=== PATIENT | female | born 1980 | race Caucasian/White ===

== ENCOUNTER 2018-08-31 21:13 | Inpatient (IN) | payer OTHER ==
[2018-08-31] MEDS ORDERED: NACL 0.9% 3 ML SYG IV (22:00)
[2018-08-31] MEDS ORDERED: BISACODYL (EC) 5 MG TAB PO (22:00)
[2018-08-31] MEDS ORDERED: DOCUSATE SODIUM 100 MG CAP PO (22:00)
[2018-08-31] MEDS ORDERED: ONDANSETRON 4 MG INJ IV (22:00)
[2018-08-31] MEDS ORDERED: ACETAMINOPHEN 325 MG TAB PO (22:00)
[2018-08-31 22:40] LABS: ADD MAN DIFF? NO; BASOPHILS % 0.5 % (0.0-2.0); EOSINOPHILS # 0.1 10^3/ul (0.0-0.5); EOSINOPHILS % 0.9 % (0.0-7.0); HEMATOCRIT 38.1 % (37.0-47.0); HEMOGLOBIN 13.2 g/dl (12.0-16.0); LYMPHOCYTES # 2.3 10^3/ul (0.8-2.9); LYMPHOCYTES % 27.9 % (15.0-51.0); MEAN CORPUSCULAR HEMOGLOBIN 27.6 pg (29.0-33.0); MEAN CORPUSCULAR HGB CONC 34.6 g/dl (32.0-37.0); MEAN CORPUSCULAR VOLUME 79.5 fl (82.0-101.0); MEAN PLATELET VOLUME 10.3 fl (7.4-10.4); MONOCYTE # 0.7 10^3/ul (0.3-0.9); MONOCYTES % 8.9 % (0.0-11.0); NEUTROPHILS % 61.2 % (39.0-77.0); PLATELET COUNT 297 10^3/UL (140-415); RED BLOOD COUNT 4.79 10^6/ul (4.20-5.40); RED CELL DISTRIBUTION WIDTH 13.7 % (11.5-14.5)
[2018-08-31 22:40] LABS: WHITE BLOOD COUNT 8.1 10^3/ul (4.8-10.8)
[2018-08-31 23:00] LABS: ANION GAP 8 (5-13); BLOOD UREA NITROGEN 10 mg/dl (7-20); CALCIUM 8.6 mg/dl (8.4-10.2); CARBON DIOXIDE 22 mmol/L (21-31); CHLORIDE 109 mmol/L (97-110); CREATININE 0.52 mg/dl (0.44-1.00); Estimated GFR > 60 mL/min (>60); GLUCOSE 105 mg/dl (70-220); POTASSIUM 4.2 mmol/L (3.5-5.1); SODIUM 139 mmol/L (135-144)
[2018-09-01 03:03] LABS: ANION GAP 10 (5-13); BLOOD UREA NITROGEN 10 mg/dl (7-20); CARBON DIOXIDE 21 mmol/L (21-31); CHLORIDE 108 mmol/L (97-110); CREATININE 0.49 mg/dl (0.44-1.00); Estimated GFR > 60 mL/min (>60); GLUCOSE 98 mg/dl (70-220); POTASSIUM 4.3 mmol/L (3.5-5.1); SODIUM 139 mmol/L (135-144)
[2018-09-01 03:07] LABS: OSMOLALITY 285 mOsm/kg (280-295)
[2018-09-01 06:14] LABS: ANION GAP 6 (5-13); BLOOD UREA NITROGEN 10 mg/dl (7-20); CALCIUM 8.6 mg/dl (8.4-10.2); CARBON DIOXIDE 24 mmol/L (21-31); CHLORIDE 111 mmol/L (97-110); CREATININE 0.53 mg/dl (0.44-1.00); Estimated GFR > 60 mL/min (>60); GLUCOSE 95 mg/dl (70-220); POTASSIUM 4.6 mmol/L (3.5-5.1); SODIUM 141 mmol/L (135-144)
[2018-09-01 06:19] LABS: CHOL/HDL RATIO 4.6 RATIO; CHOLESTEROL 171 mg/dl (100-200); HDL CHOLESTEROL 37 mg/dl (34-82); LDL CHOLESTEROL,CALCULATED 105 mg/dl; TRIGLYCERIDES 143 mg/dl (0-149)
[2018-09-01 06:19] LABS: MAGNESIUM 2.9 mg/dl (1.7-2.5)
[2018-09-01 07:48] LABS: ADD UMIC YES; UR ASCORBIC ACID NEGATIVE (NEGATIVE); UR BACTERIA FEW /HPF (NONE SEEN); UR BILIRUBIN (Dip) NEGATIVE (NEGATIVE); UR BLOOD (Dip) 1+ mg/dL (NEGATIVE); UR CLARITY CLEAR (CLEAR); UR COLOR YELLOW (YELLOW); UR GLUCOSE (Dip) NEGATIVE (NEGATIVE); UR KETONES (Dip) NEGATIVE (NEGATIVE); UR LEUKOCYTE ESTERASE (Dip) NEGATIVE Leu/ul (NEGATIVE); UR NITRITE (Dip) NEGATIVE (NEGATIVE); UR RBC 0 /HPF (0-5); UR SPECIFIC GRAVITY (Dip) 1.009 (1.003-1.030); UR TOTAL PROTEIN (Dip) NEGATIVE (NEGATIVE); UR UROBILINOGEN (Dip) NEGATIVE (NEGATIVE); UR WBC 1 /HPF (0-5)
[2018-09-01 07:59] LABS: SODIUM,URINE RANDOM < 13 mmol/L (30-90)
[2018-09-01 08:30] LABS: OSMOLALITY,URINE 280 mOsm/kg (250-1200)
== END 2018-09-01 15:51 | disposition home or self-care (01) | DRG 641 ==
LOC: 6WM 21:13
DX: E87.6 Hypokalemia (principal); E87.1 Hypo-osmolality and hyponatremia; K52.9 Noninfective gastroenteritis and colitis, unspecified; I10 Essential (primary) hypertension; F31.9 Bipolar disorder, unspecified
CPT/HCPCS: 80048; 80061; 81001; 82306; 83735; 83930; 83935; 84300; 84443; 85025; 87081

== ENCOUNTER 2018-09-05 00:52 | Emergency (ER) | payer OTHER ==
[2018-09-05 03:12] LABS: URINE BLOOD (Dip) POC Trace-lysed (NEGATIVE); URINE GLUCOSE (Dip) POC Negative (NEGATIVE); URINE KETONES (Dip) POC Negative (NEGATIVE); URINE LEUKOCYTE EST (Dip) POC Negative (NEGATIVE); URINE NITRITE (Dip) POC Negative (NEGATIVE); URINE TOTAL PROTEIN POC Negative (NEGATIVE)
[2018-09-05] MEDS: LIDOCAINE/MYLANTA 40 ML BTL PO (03:22)
[2018-09-05] MEDS: ONDANSETRON (ODT) 4 MG TAB ODT (03:22)
[2018-09-05] MEDS: ACETAMINOPHEN 500 MG TAB PO (03:23)
[2018-09-05] MEDS: FAMOTIDINE 20 MG TAB PO (03:24)
[2018-09-05] MEDS: NICARDipine HCL 30 MG CAPSULE PO (04:09)
== END 2018-09-05 04:12 | disposition home or self-care (01) ==
LOC: FTE 00:52
DX: R19.7 Diarrhea, unspecified (principal); I10 Essential (primary) hypertension; R11.10 Vomiting, unspecified
CPT/HCPCS: 81003; 81025; 99283

== ENCOUNTER 2018-09-06 07:55 | Emergency (ER) | payer OTHER ==
[2018-09-06 09:19] LABS: ADD MAN DIFF? NO
[2018-09-06 09:22] LABS: BASOPHIL # 0.1 10^3/ul (0.0-0.1); EOSINOPHILS # 0.1 10^3/ul (0.0-0.5); EOSINOPHILS % 0.7 % (0.0-7.0); HEMOGLOBIN 14.4 g/dl (12.0-16.0); LYMPHOCYTES # 2.2 10^3/ul (0.8-2.9); LYMPHOCYTES % 30.5 % (15.0-51.0); MEAN CORPUSCULAR HEMOGLOBIN 27.4 pg (29.0-33.0); MEAN CORPUSCULAR HGB CONC 33.5 g/dl (32.0-37.0); MEAN CORPUSCULAR VOLUME 81.7 fl (82.0-101.0); MEAN PLATELET VOLUME 9.3 fl (7.4-10.4); MONOCYTE # 0.4 10^3/ul (0.3-0.9); MONOCYTES % 5.4 % (0.0-11.0); NEUTROPHIL # 4.4 10^3/ul (1.6-7.5); PLATELET COUNT 364 10^3/UL (140-415); RED BLOOD COUNT 5.26 10^6/ul (4.20-5.40); RED CELL DISTRIBUTION WIDTH 13.4 % (11.5-14.5)
[2018-09-06 09:44] LABS: ALANINE AMINOTRANSFERASE 34 IU/L (13-69); ALBUMIN 4.6 g/dl (3.3-4.9); ALBUMIN/GLOBULIN RATIO 1.35; ALKALINE PHOSPHATASE 120 IU/L (42-121); ANION GAP 9 (5-13); ASPARTATE AMINO TRANSFERASE 30 IU/L (15-46); BILIRUBIN,INDIRECT 1.5 mg/dl (0-1.1); BILIRUBIN,TOTAL 1.5 mg/dl (0.2-1.3); BLOOD UREA NITROGEN 9 mg/dl (7-20); CALCIUM 9.5 mg/dl (8.4-10.2); CARBON DIOXIDE 30 mmol/L (21-31); CHLORIDE 102 mmol/L (97-110); CREATININE 0.63 mg/dl (0.44-1.00); Estimated GFR > 60 mL/min (>60); GLUCOSE 93 mg/dl (70-220); LIPASE 602 U/L (23-300); POTASSIUM 3.9 mmol/L (3.5-5.1); SODIUM 141 mmol/L (135-144)
[2018-09-06 09:54] LABS: ADD UMIC YES; UR ASCORBIC ACID NEGATIVE (NEGATIVE); UR BILIRUBIN (Dip) NEGATIVE (NEGATIVE); UR BLOOD (Dip) 1+ mg/dL (NEGATIVE); UR CLARITY CLEAR (CLEAR); UR COLOR COLORLESS (YELLOW); UR GLUCOSE (Dip) NEGATIVE (NEGATIVE); UR KETONES (Dip) NEGATIVE (NEGATIVE); UR LEUKOCYTE ESTERASE (Dip) NEGATIVE Leu/ul (NEGATIVE); UR NITRITE (Dip) NEGATIVE (NEGATIVE); UR RBC 0 /HPF (0-5); UR SPECIFIC GRAVITY (Dip) 1.001 (1.003-1.030); UR TOTAL PROTEIN (Dip) NEGATIVE (NEGATIVE); UR UROBILINOGEN (Dip) NEGATIVE (NEGATIVE); UR WBC 0 /HPF (0-5)
[2018-09-06] MEDS: LIDOCAINE/MYLANTA 40 ML BTL PO (09:55)
[2018-09-06] MEDS: morphine 2 MG INJ IV (09:55)
[2018-09-06] MEDS: DICYCLOMINE 10 MG CAP PO (09:56)
[2018-09-06] MEDS: SOD CHLORIDE 0.9% 1,000 ML IV (09:56)
[2018-09-06] MEDS: ONDANSETRON 4 MG INJ IV (09:56)
== END 2018-09-06 12:11 | disposition left against medical advice (07) ==
LOC: FTE 07:55
DX: K85.90 Acute pancreatitis without necrosis or infection, unspecified (principal); N13.30 Unspecified hydronephrosis
CPT/HCPCS: 36415; 76705; 80053; 81001; 81025; 83690; 85025; 96361; 96374; 96375; 99285-25

== ENCOUNTER 2018-09-06 23:45 | Emergency (ER) | payer OTHER ==
[2018-09-07 03:57] LABS: ADD UMIC YES; UR ASCORBIC ACID NEGATIVE (NEGATIVE); UR BILIRUBIN (Dip) NEGATIVE (NEGATIVE); UR BLOOD (Dip) 2+ mg/dL (NEGATIVE); UR CLARITY CLEAR (CLEAR); UR COLOR COLORLESS (YELLOW); UR GLUCOSE (Dip) NEGATIVE (NEGATIVE); UR KETONES (Dip) NEGATIVE (NEGATIVE); UR LEUKOCYTE ESTERASE (Dip) NEGATIVE Leu/ul (NEGATIVE); UR NITRITE (Dip) NEGATIVE (NEGATIVE); UR RBC 0 /HPF (0-5); UR SPECIFIC GRAVITY (Dip) 1.002 (1.003-1.030); UR SQUAMOUS EPITHELIAL CELL FEW /HPF (FEW); UR TOTAL PROTEIN (Dip) NEGATIVE (NEGATIVE); UR UROBILINOGEN (Dip) NEGATIVE (NEGATIVE); UR WBC 0 /HPF (0-5)
[2018-09-07] MEDS: ONDANSETRON (ODT) 4 MG TAB ODT (04:30)
[2018-09-07] MEDS: FAMOTIDINE 20 MG TAB PO (04:31)
[2018-09-07] MEDS: ACETAMINOPHEN 500 MG TAB PO (04:31)
== END 2018-09-07 04:37 | disposition home or self-care (01) ==
LOC: FTE 23:45
DX: B34.9 Viral infection, unspecified (principal); I10 Essential (primary) hypertension
CPT/HCPCS: 81001; 84703; 87086; 99283

== ENCOUNTER 2018-09-07 07:36 | Emergency (ER) | payer OTHER ==
[2018-09-07 08:34] LABS: ADD MAN DIFF? NO
[2018-09-07 08:47] LABS: BASOPHIL # 0.1 10^3/ul (0.0-0.1); BASOPHILS % 0.9 % (0.0-2.0); EOSINOPHILS # 0.1 10^3/ul (0.0-0.5); EOSINOPHILS % 0.7 % (0.0-7.0); HEMOGLOBIN 13.9 g/dl (12.0-16.0); LYMPHOCYTES # 2.8 10^3/ul (0.8-2.9); LYMPHOCYTES % 33.8 % (15.0-51.0); MEAN CORPUSCULAR HEMOGLOBIN 27.4 pg (29.0-33.0); MEAN CORPUSCULAR HGB CONC 33.9 g/dl (32.0-37.0); MEAN CORPUSCULAR VOLUME 80.9 fl (82.0-101.0); MEAN PLATELET VOLUME 9.8 fl (7.4-10.4); MONOCYTE # 0.5 10^3/ul (0.3-0.9); MONOCYTES % 5.9 % (0.0-11.0); NEUTROPHIL # 4.8 10^3/ul (1.6-7.5); NEUTROPHILS % 58.5 % (39.0-77.0); PLATELET COUNT 362 10^3/UL (140-415); RED BLOOD COUNT 5.07 10^6/ul (4.20-5.40); RED CELL DISTRIBUTION WIDTH 13.7 % (11.5-14.5)
[2018-09-07 08:47] LABS: WHITE BLOOD COUNT 8.2 10^3/ul (4.8-10.8)
[2018-09-07] MEDS: DICYCLOMINE 10 MG CAP PO (09:00)
[2018-09-07 09:06] LABS: ALANINE AMINOTRANSFERASE 27 IU/L (13-69); ALBUMIN 4.3 g/dl (3.3-4.9); ALKALINE PHOSPHATASE 91 IU/L (42-121); ANION GAP 9 (5-13); ASPARTATE AMINO TRANSFERASE 28 IU/L (15-46); BILIRUBIN,INDIRECT 1.6 mg/dl (0-1.1); BILIRUBIN,TOTAL 1.6 mg/dl (0.2-1.3); BLOOD UREA NITROGEN 7 mg/dl (7-20); CALCIUM 8.8 mg/dl (8.4-10.2); CARBON DIOXIDE 28 mmol/L (21-31); CHLORIDE 102 mmol/L (97-110); CREATININE 0.57 mg/dl (0.44-1.00); Estimated GFR > 60 mL/min (>60); GLUCOSE 99 mg/dl (70-220); LIPASE 73 U/L (23-300); POTASSIUM 3.6 mmol/L (3.5-5.1); SODIUM 139 mmol/L (135-144); TOTAL PROTEIN 7.6 g/dl (6.1-8.1)
== END 2018-09-07 10:14 | disposition home or self-care (01) ==
LOC: E/R 07:36
DX: F22 Delusional disorders (principal); R10.84 Generalized abdominal pain; R40.2142 Coma scale, eyes open, spontaneous, at arrival to emergency department; R40.2252 Coma scale, best verbal response, oriented, at arrival to emergency department; R40.2362 Coma scale, best motor response, obeys commands, at arrival to emergency department; I10 Essential (primary) hypertension
CPT/HCPCS: 74176; 80053; 81025; 83690; 85025; 99284-25

== ENCOUNTER 2018-09-09 00:30 | Emergency (ER) | payer OTHER ==
[2018-09-09 02:15] LABS: ADD UMIC YES; UR ASCORBIC ACID NEGATIVE (NEGATIVE); UR BILIRUBIN (Dip) NEGATIVE (NEGATIVE); UR BLOOD (Dip) 1+ mg/dL (NEGATIVE); UR CLARITY CLEAR (CLEAR); UR COLOR COLORLESS (YELLOW); UR GLUCOSE (Dip) NEGATIVE (NEGATIVE); UR KETONES (Dip) NEGATIVE (NEGATIVE); UR LEUKOCYTE ESTERASE (Dip) NEGATIVE Leu/ul (NEGATIVE); UR NITRITE (Dip) NEGATIVE (NEGATIVE); UR RBC 0 /HPF (0-5); UR SPECIFIC GRAVITY (Dip) 1.002 (1.003-1.030); UR TOTAL PROTEIN (Dip) NEGATIVE (NEGATIVE); UR UROBILINOGEN (Dip) NEGATIVE (NEGATIVE); UR WBC 0 /HPF (0-5)
== END 2018-09-09 03:29 | disposition home or self-care (01) ==
LOC: FTE 03:29
DX: R10.30 Lower abdominal pain, unspecified (principal); R30.0 Dysuria; F41.9 Anxiety disorder, unspecified; I10 Essential (primary) hypertension; R11.0 Nausea
CPT/HCPCS: 81001; 81025; 87086; 99283

== ENCOUNTER 2018-09-10 18:20 | Emergency (ER) | payer OTHER ==
[2018-09-10] MEDS: LIDOCAINE/MYLANTA 40 ML BTL PO (19:23)
[2018-09-10] MEDS: BELLADONNA/PHENOBARBITAL TAB PO (19:23)
== END 2018-09-10 19:43 | disposition home or self-care (01) ==
LOC: E/R 18:20
DX: R42 Dizziness and giddiness (principal); I10 Essential (primary) hypertension; F31.12 Bipolar disorder, current episode manic without psychotic features, moderate; R19.7 Diarrhea, unspecified; R10.84 Generalized abdominal pain; R11.2 Nausea with vomiting, unspecified
CPT/HCPCS: 99283; Z7610

== ENCOUNTER 2018-09-11 19:27 | Emergency (ER) | payer OTHER ==
[2018-09-11 21:48] LABS: URINE BLOOD (Dip) POC Trace-lysed (NEGATIVE); URINE GLUCOSE (Dip) POC Negative (NEGATIVE); URINE KETONES (Dip) POC Negative (NEGATIVE); URINE LEUKOCYTE EST (Dip) POC Negative (NEGATIVE); URINE NITRITE (Dip) POC Negative (NEGATIVE); URINE TOTAL PROTEIN POC Negative (NEGATIVE)
== END 2018-09-11 22:41 | disposition home or self-care (01) ==
LOC: FTE 19:27
DX: F41.9 Anxiety disorder, unspecified (principal); I10 Essential (primary) hypertension; R19.7 Diarrhea, unspecified; R42 Dizziness and giddiness; R11.0 Nausea
CPT/HCPCS: 81003; 81025; 99282

== ENCOUNTER 2018-09-14 11:30 | Emergency (ER) | payer OTHER ==
[2018-09-14] MEDS: ONDANSETRON (ODT) 4 MG TAB ODT (12:05)
[2018-09-14 12:30] LABS: URINE BLOOD (Dip) POC 2+ (NEGATIVE); URINE GLUCOSE (Dip) POC Negative (NEGATIVE); URINE KETONES (Dip) POC Negative (NEGATIVE); URINE LEUKOCYTE EST (Dip) POC Negative (NEGATIVE); URINE NITRITE (Dip) POC Negative (NEGATIVE); URINE TOTAL PROTEIN POC 1+ (NEGATIVE)
[2018-09-14 12:33] LABS: URINE BLOOD (Dip) POC 2+ (NEGATIVE); URINE GLUCOSE (Dip) POC Negative (NEGATIVE); URINE KETONES (Dip) POC Negative (NEGATIVE); URINE LEUKOCYTE EST (Dip) POC Negative (NEGATIVE); URINE NITRITE (Dip) POC Negative (NEGATIVE); URINE TOTAL PROTEIN POC 1+ (NEGATIVE)
== END 2018-09-14 12:45 | disposition home or self-care (01) ==
LOC: FTE 12:45
DX: R11.0 Nausea (principal)
CPT/HCPCS: 81003; 81025; 96374; 96375; 96376; 99285-25

== ENCOUNTER 2018-09-15 07:43 | Emergency (ER) | payer OTHER | END 2018-09-15 08:39 | disposition home or self-care (01) | LOC: FTE 07:43 → E/R 08:39 | DX: Z00.00 Encounter for general adult medical examination without abnormal findings (principal); I10 Essential (primary) hypertension | CPT/HCPCS: 99282; Z7502 ==

== ENCOUNTER 2018-09-16 11:37 | Emergency (ER) | payer OTHER ==
[2018-09-16 12:42] LABS: ADD MAN DIFF? NO
[2018-09-16 12:48] LABS: WHITE BLOOD COUNT 7.2 10^3/ul (4.8-10.8)
[2018-09-16 12:48] LABS: BASOPHIL # 0.1 10^3/ul (0.0-0.1); BASOPHILS % 0.7 % (0.0-2.0); EOSINOPHILS # 0.1 10^3/ul (0.0-0.5); EOSINOPHILS % 1.4 % (0.0-7.0); HEMATOCRIT 40.7 % (37.0-47.0); HEMOGLOBIN 13.8 g/dl (12.0-16.0); LYMPHOCYTES # 2.4 10^3/ul (0.8-2.9); MEAN CORPUSCULAR HEMOGLOBIN 27.6 pg (29.0-33.0); MEAN CORPUSCULAR HGB CONC 33.9 g/dl (32.0-37.0); MEAN CORPUSCULAR VOLUME 81.4 fl (82.0-101.0); MEAN PLATELET VOLUME 9.6 fl (7.4-10.4); MONOCYTE # 0.4 10^3/ul (0.3-0.9); NEUTROPHIL # 4.2 10^3/ul (1.6-7.5); NEUTROPHILS % 58.6 % (39.0-77.0); PLATELET COUNT 313 10^3/UL (140-415); RED CELL DISTRIBUTION WIDTH 13.5 % (11.5-14.5)
[2018-09-16 13:02] LABS: ALANINE AMINOTRANSFERASE 28 IU/L (13-69); ALBUMIN 4.5 g/dl (3.3-4.9); ALBUMIN/GLOBULIN RATIO 1.36; ALKALINE PHOSPHATASE 80 IU/L (42-121); AMYLASE 71 U/L (11-123); ANION GAP 11 (5-13); ASPARTATE AMINO TRANSFERASE 26 IU/L (15-46); BILIRUBIN,INDIRECT 2.1 mg/dl (0-1.1); BILIRUBIN,TOTAL 2.1 mg/dl (0.2-1.3); BLOOD UREA NITROGEN 7 mg/dl (7-20); CALCIUM 9.7 mg/dl (8.4-10.2); CARBON DIOXIDE 25 mmol/L (21-31); CHLORIDE 107 mmol/L (97-110); CREATINE KINASE 79 IU/L (23-200); CREATININE 0.55 mg/dl (0.44-1.00); Estimated GFR > 60 mL/min (>60); GLUCOSE 99 mg/dl (70-220); LIPASE 64 U/L (23-300); POTASSIUM 3.6 mmol/L (3.5-5.1); SODIUM 143 mmol/L (135-144); TOTAL PROTEIN 7.8 g/dl (6.1-8.1)
[2018-09-16 13:05] LABS: INR 0.89; PROTIME 12.2 Sec (11.9-14.9)
[2018-09-16 13:06] LABS: PARTIAL THROMBOPLASTIN TIME 27.7 Sec (23.0-35.0)
[2018-09-16 13:14] LABS: CK INDEX 0.6; CK-MB 0.47 ng/ml (0.0-2.4); TROPONIN-I < 0.012 ng/ml (0.000-0.120)
[2018-09-16 13:15] LABS: ACETAMINOPHEN < 10.0 ug/ml (10.0-30.0); ETHANOL < 10.0 mg/dl (0-0); SALICYLATE < 1.0 mg/dl (5.0-30.0)
== END 2018-09-16 13:58 | disposition home or self-care (01) ==
LOC: E/R 11:37
DX: G44.209 Tension-type headache, unspecified, not intractable (principal); I10 Essential (primary) hypertension; R19.7 Diarrhea, unspecified
CPT/HCPCS: 80053; 80307; 82150; 82550; 82553; 83690; 84484; 84703; 85025; 85610; 85730; 99284-25

== ENCOUNTER → 2018-09-18 | Emergency (ER) | payer SELFPAY, OTHER | END | disposition left against medical advice (07) | LOC: E/R 09:18 | DX: Z53.21 Procedure and treatment not carried out due to patient leaving prior to being seen by health care provider (principal) ==

== ENCOUNTER 2018-09-19 01:27 | Emergency (ER) | payer OTHER ==
[2018-09-19] MEDS ORDERED: HYDROmorphONE 1 MG/ML SYG IV (01:54)
[2018-09-19] MEDS ORDERED: ONDANSETRON 4 MG INJ IV (01:54)
== END 2018-09-19 02:46 | disposition left against medical advice (07) ==
LOC: FTE 01:27
DX: R10.31 Right lower quadrant pain (principal); I10 Essential (primary) hypertension; R40.2142 Coma scale, eyes open, spontaneous, at arrival to emergency department; R40.2252 Coma scale, best verbal response, oriented, at arrival to emergency department; R40.2362 Coma scale, best motor response, obeys commands, at arrival to emergency department
CPT/HCPCS: 81025; 99283

== ENCOUNTER 2018-09-19 09:36 | Emergency (ER) | payer OTHER ==
[2018-09-19] MEDS: LIDOCAINE/MYLANTA 40 ML BTL PO (10:03)
== END 2018-09-19 10:34 | disposition home or self-care (01) ==
LOC: E/R 09:36
DX: R10.9 Unspecified abdominal pain (principal); I10 Essential (primary) hypertension
CPT/HCPCS: 81025; 99282

== ENCOUNTER 2018-09-20 06:32 | Emergency (ER) | payer OTHER | END 2018-09-20 07:05 | disposition home or self-care (01) | LOC: E/R 06:32 | DX: R11.0 Nausea (principal); I10 Essential (primary) hypertension | CPT/HCPCS: 99282; Z7502 ==

== ENCOUNTER 2018-09-20 13:43 | Emergency (ER) | payer OTHER | END 2018-09-20 14:45 | disposition home or self-care (01) | LOC: E/R 13:43 | DX: R10.84 Generalized abdominal pain (principal); I10 Essential (primary) hypertension; R19.7 Diarrhea, unspecified | CPT/HCPCS: 99282; Z7502 ==

== ENCOUNTER 2018-09-22 07:04 | Emergency (ER) | payer OTHER | END 2018-09-22 08:25 | disposition home or self-care (01) | LOC: E/R 07:04 | DX: R19.7 Diarrhea, unspecified (principal); I10 Essential (primary) hypertension | CPT/HCPCS: 99283 ==

== ENCOUNTER 2018-09-22 14:46 | Emergency (ER) | payer OTHER | END 2018-09-22 18:06 | disposition home or self-care (01) | LOC: E/R 18:06 | DX: F31.9 Bipolar disorder, unspecified (principal); I10 Essential (primary) hypertension | CPT/HCPCS: 99283 ==

== ENCOUNTER 2018-09-23 07:38 | Emergency (ER) | payer OTHER | END 2018-09-23 10:13 | disposition home or self-care (01) | LOC: E/R 07:38 | DX: R10.84 Generalized abdominal pain (principal); R51 Headache; R19.7 Diarrhea, unspecified; R11.10 Vomiting, unspecified | CPT/HCPCS: 99282; Z7502 ==

== ENCOUNTER 2018-09-24 10:28 | Emergency (ER) | payer OTHER | END 2018-09-24 11:51 | disposition left against medical advice (07) | LOC: E/R 10:28 | DX: R10.84 Generalized abdominal pain (principal); I10 Essential (primary) hypertension; R19.7 Diarrhea, unspecified; R11.0 Nausea | CPT/HCPCS: 99282; Z7502 ==

== ENCOUNTER 2018-09-30 13:36 | Emergency (ER) | payer OTHER ==
[2018-09-30 15:50] LABS: URINE BLOOD (Dip) POC Trace-intact (NEGATIVE); URINE GLUCOSE (Dip) POC Negative (NEGATIVE); URINE KETONES (Dip) POC Negative (NEGATIVE); URINE LEUKOCYTE EST (Dip) POC 1+ (NEGATIVE); URINE NITRITE (Dip) POC Negative (NEGATIVE); URINE TOTAL PROTEIN POC Negative (NEGATIVE)
[2018-09-30] MEDS: CEFTRIAXONE 1 GM INJ IM (16:31)
[2018-09-30] MEDS: LIDOCAINE 1% (MPF) 5 ML VIAL INJ (16:31)
== END 2018-09-30 16:36 | disposition left against medical advice (07) ==
LOC: FTE 13:36
DX: N39.0 Urinary tract infection, site not specified (principal); I10 Essential (primary) hypertension
CPT/HCPCS: 81003; 81025; 87086; 99283-25

== ENCOUNTER 2018-10-01 03:16 | Emergency (ER) | payer OTHER | END 2018-10-01 06:07 | disposition home or self-care (01) | LOC: FTE 03:16 | DX: R07.89 Other chest pain (principal); I10 Essential (primary) hypertension; R10.2 Pelvic and perineal pain; R30.0 Dysuria | CPT/HCPCS: 81025; 99282 ==

== ENCOUNTER 2018-10-04 01:17 | Emergency (ER) | payer OTHER ==
[2018-10-04 02:07] LABS: URINE BLOOD (Dip) POC 3+ (NEGATIVE); URINE GLUCOSE (Dip) POC Negative (NEGATIVE); URINE KETONES (Dip) POC Trace (NEGATIVE); URINE LEUKOCYTE EST (Dip) POC Trace (NEGATIVE); URINE NITRITE (Dip) POC Negative (NEGATIVE); URINE TOTAL PROTEIN POC 2+ (NEGATIVE)
[2018-10-04 02:07] LABS: URINE PH (Dip) POC 6.5 (5.0-8.5)
[2018-10-04 02:51] LABS: ADD UMIC YES; UR ASCORBIC ACID NEGATIVE (NEGATIVE); UR BACTERIA FEW /HPF (NONE SEEN); UR BILIRUBIN (Dip) NEGATIVE (NEGATIVE); UR BLOOD (Dip) 3+ mg/dL (NEGATIVE); UR CLARITY CLOUDY (CLEAR); UR COLOR RED (YELLOW); UR GLUCOSE (Dip) NEGATIVE (NEGATIVE); UR KETONES (Dip) NEGATIVE (NEGATIVE); UR LEUKOCYTE ESTERASE (Dip) 2+ Leu/ul (NEGATIVE); UR MUCUS FEW /HPF (NONE SEEN); UR NITRITE (Dip) NEGATIVE (NEGATIVE); UR RBC > 182 /HPF (0-5); UR SQUAMOUS EPITHELIAL CELL FEW /HPF (FEW); UR TOTAL PROTEIN (Dip) 2+ mg/dl (NEGATIVE); UR UROBILINOGEN (Dip) 1+ mg/dL (NEGATIVE); UR WBC 140 /HPF (0-5)
[2018-10-04 02:56] LABS: ADD MAN DIFF? NO
[2018-10-04 02:58] LABS: WHITE BLOOD COUNT 8.1 10^3/ul (4.8-10.8)
[2018-10-04 02:58] LABS: BASOPHIL # 0.1 10^3/ul (0.0-0.1); BASOPHILS % 0.7 % (0.0-2.0); EOSINOPHILS # 0.1 10^3/ul (0.0-0.5); EOSINOPHILS % 1.5 % (0.0-7.0); HEMATOCRIT 38.4 % (37.0-47.0); HEMOGLOBIN 12.9 g/dl (12.0-16.0); LYMPHOCYTES # 2.1 10^3/ul (0.8-2.9); LYMPHOCYTES % 26.2 % (15.0-51.0); MEAN CORPUSCULAR HEMOGLOBIN 27.6 pg (29.0-33.0); MEAN CORPUSCULAR HGB CONC 33.6 g/dl (32.0-37.0); MEAN CORPUSCULAR VOLUME 82.1 fl (82.0-101.0); MONOCYTE # 0.5 10^3/ul (0.3-0.9); MONOCYTES % 6.5 % (0.0-11.0); NEUTROPHIL # 5.3 10^3/ul (1.6-7.5); PLATELET COUNT 267 10^3/UL (140-415); RED BLOOD COUNT 4.68 10^6/ul (4.20-5.40); RED CELL DISTRIBUTION WIDTH 13.5 % (11.5-14.5)
[2018-10-04 03:17] LABS: ALANINE AMINOTRANSFERASE 27 IU/L (13-69); ALBUMIN 4.1 g/dl (3.3-4.9); ALBUMIN/GLOBULIN RATIO 1.32; ALKALINE PHOSPHATASE 94 IU/L (42-121); ANION GAP 8 (5-13); ASPARTATE AMINO TRANSFERASE 29 IU/L (15-46); BILIRUBIN,INDIRECT 1.1 mg/dl (0-1.1); BILIRUBIN,TOTAL 1.1 mg/dl (0.2-1.3); BLOOD UREA NITROGEN 11 mg/dl (7-20); CALCIUM 9.5 mg/dl (8.4-10.2); CARBON DIOXIDE 29 mmol/L (21-31); CHLORIDE 105 mmol/L (97-110); CREATININE 0.79 mg/dl (0.44-1.00); Estimated GFR > 60 mL/min (>60); GLUCOSE 115 mg/dl (70-220); POTASSIUM 3.4 mmol/L (3.5-5.1); SODIUM 142 mmol/L (135-144); TOTAL PROTEIN 7.2 g/dl (6.1-8.1)
[2018-10-04 03:38] LABS: AMPHETAMINE/METHAMPHETAMINE Negative (NEGATIVE); BARBITURATES Negative (NEGATIVE); BENZODIAZEPINES Negative (NEGATIVE); CANNABINOIDS Negative (NEGATIVE); COCAINE Negative (NEGATIVE); OPIATES Negative (NEGATIVE)
[2018-10-04] MEDS: POTASSIUM CHLORIDE (SR) 20 MEQ TAB PO (03:57)
[2018-10-04] MEDS: CEFTRIAXONE 250 MG INJ IM (03:57)
[2018-10-04] MEDS: AZITHROMYCIN 500 MG TAB PO (03:57)
[2018-10-04] MEDS: ONDANSETRON (ODT) 4 MG TAB ODT (03:57)
== END 2018-10-04 03:59 | disposition home or self-care (01) ==
LOC: FTE 01:17
DX: N39.0 Urinary tract infection, site not specified (principal); R31.9 Hematuria, unspecified; I10 Essential (primary) hypertension
CPT/HCPCS: 80053; 80307; 81001; 81003; 81025; 85025; 87086; 87591; 99283